=== PATIENT | male | born 1975 | race Hispanic/Latino ===

== ENCOUNTER 2020-05-08 11:34 | Emergency (ER) | payer OTHER ==
[2020-05-08] MEDS ORDERED: Metoclopramide HCl 10 MG/2 ML VIAL ONE (12:05)
[2020-05-08] MEDS ORDERED: diphenhydrAMINE 50 MG/ML VIAL ONE (12:05)
[2020-05-08] MEDS ORDERED: Acetaminophen 500 MG TAB ONE (12:05)
--- NOTE | 2020-05-08 12:39 | CT ---
CT head noncontrast HISTORY: Headache. FINDINGS: There is no evidence of acute intracranial hemorrhage or infarct. The ventricles appear nor mal in size, shape and position. There is no mass effect or shift of midline structures. Visualized paranasal sinuses remain well aerated. IMPRESSION : No abnormalities are demonstrated.
== END 2020-05-08 13:35 | disposition home or self-care (01) ==
LOC: ERS 11:34
DX: R51.9 Headache, unspecified (principal)
CPT/HCPCS: 70450; 96365; 96375; J1200; J2765

== ENCOUNTER 2022-06-26 18:30 | Emergency (ER) | payer BC, OTHER ==
[2022-06-26] MEDS ORDERED: Metoclopramide HCl 10 MG/2 ML VIAL ONE (20:36)
[2022-06-26] MEDS ORDERED: diphenhydrAMINE 50 MG/ML VIAL ONE (20:36)
[2022-06-26 20:48] LABS: #Eosinphils 0.2 thou/uL (0.0-0.7); #Monocytes 0.6 thou/uL (0.11-0.59); #Neutrophils 4.1 thou/uL (1.40-6.50); %Basophils 0.6 % (0.0-1.0); %Lymphocytes 37.8 % (21.0-51.0); %Monocytes 7.9 % (0.0-10.0); %Neutrophils 51.7 % (42.0-75.0); Hemoglobin 14.9 g/dL (14.0-18.0); Mean Corpuscular HGB CONC 32.9 g/dL (32.0-36.0); Mean Corpuscular Hemoglobin 27.6 pg (27.0-31.0); Mean Corpuscular Volume 83.8 fl (78.0-98.0); Mean Platelet Volume 8.3 fL (7.4-10.4); Platelet Count 268 10x3/uL (130-400); RBC Distribution Width 12.4 % (11.5-14.5); Red Blood Cell (RBC) Count 5.39 mill/uL (4.70-6.10)
[2022-06-26 21:11] LABS: ALT (SGPT) 39 U/L (8-55); AST (SGOT) 20 U/L (5-34); Albumin 4.7 g/dL (3.5-5.0); Alkaline Phosphatase 68 U/L (40-110); Anion Gap 11 mmol/L (10-20); BUN (Urea Nitrogen) 14 mg/dL (8.9-20.6); Bilirubin, Total 0.2 mg/dL (0.2-1.2); Calc. Creatinine Clearance 0 mL/min (70-130); Calcium 9.8 mg/dL (7.8-10.44); Carbon Dioxide 26 mmol/L (22-29); Chloride 101 mmol/L (98-107); Estimated GFR 110; Globulin 3.8 g/dL (2.4-3.5); Glucose 95 mg/dL (70-105); Potassium 4.3 mmol/L (3.5-5.1); Protein, Total 8.5 g/dL (6.0-8.3); Sodium 134 mmol/L (136-145)
== END 2022-06-26 22:10 | disposition home or self-care (01) ==
LOC: ERS 18:30
DX: R51.9 Headache, unspecified (principal); R07.89 Other chest pain
CPT/HCPCS: 36415; 70450; 80053; 84484; 85025; 93005; 96374; 96375; J1200; J2765

== ENCOUNTER 2022-10-03 13:12 | Observation (INO) | payer BC ==
[2022-10-03 14:42] LABS: #Lymphocytes 2.4 thou/uL (1.20-3.40); #Monocytes 0.7 thou/uL (0.11-0.59); %Basophils 0.4 % (0.0-1.0); %Eosinophils 0.3 % (0.0-10.0); %Lymphocytes 19.5 % (21.0-51.0); %Monocytes 5.4 % (0.0-10.0); %Neutrophils 74.5 % (42.0-75.0); Hemoglobin 14.2 g/dL (14.0-18.0); Mean Corpuscular HGB CONC 33.5 g/dL (32.0-36.0); Mean Corpuscular Hemoglobin 28.4 pg (27.0-31.0); Mean Corpuscular Volume 84.6 fl (78.0-98.0); Mean Platelet Volume 8.3 fL (7.4-10.4); Platelet Count 254 10x3/uL (130-400); RBC Distribution Width 12.3 % (11.5-14.5); Red Blood Cell (RBC) Count 4.99 mill/uL (4.70-6.10); White Blood Cell (WBC) Count 12.1 10x3/uL (4.8-10.8)
[2022-10-03 15:05] LABS: ALT (SGPT) 54 U/L (8-55); AST (SGOT) 20 U/L (5-34); Albumin 5.1 g/dL (3.5-5.0); Alkaline Phosphatase 76 U/L (40-110); Anion Gap 15 mmol/L (10-20); BUN (Urea Nitrogen) 12 mg/dL (8.9-20.6); Bilirubin, Total 0.4 mg/dL (0.2-1.2); Calc. Creatinine Clearance 0 mL/min (70-130); Calcium 10.4 mg/dL (7.8-10.44); Carbon Dioxide 25 mmol/L (22-29); Chloride 101 mmol/L (98-107); Estimated GFR 108; Globulin 3.6 g/dL (2.4-3.5); Glucose 116 mg/dL (70-105); Lipase 29 U/L (8-78); Potassium 4.2 mmol/L (3.5-5.1); Protein, Total 8.7 g/dL (6.0-8.3); Sodium 137 mmol/L (136-145)
[2022-10-03] MEDS ORDERED: Ondansetron PF 4 MG/2 ML Vial ONE ×2 (16:23→23:04)
[2022-10-03] MEDS ORDERED: Piperacillin/Tazobactam 3.375 GM VIAL ONE (16:33)
[2022-10-03] MEDS ORDERED: Morphine 4 MG/ML VIAL ONE (16:33)
[2022-10-03] MEDS ORDERED: Ondansetron PF 4 MG/2 ML Vial IVP PRN (21:00)
[2022-10-03] MEDS ORDERED: Ondansetron ODT 4 MG TAB SL PRN (21:00)
[2022-10-03] MEDS ORDERED: Acetaminophen 325 MG TAB PO PRN (21:00)
[2022-10-03] MEDS: Piperacillin/Tazobactam 3.375 GM in Sodium Chloride 0.9% 100 ML IVPB SCH (21:56)
[2022-10-03] MEDS: Sodium Chloride 0.9% 1,000 ML IV SCH (21:56)
[2022-10-03] MEDS ORDERED: Bupivacaine/Epinephrine 0.25% 30 ML VIAL ONE (22:02)
[2022-10-03] MEDS ORDERED: fentaNYL PF 100 MCG/2 ML SYRINGE ONE (22:37)
[2022-10-03] MEDS ORDERED: fentaNYL 50 mcg/mL 1 mL Vial ONE (22:37)
[2022-10-03 22:59] VITALS: BMI 30.9
[2022-10-03] MEDS ORDERED: diphenhydrAMINE 50 MG/ML VIAL ONE (23:04)
[2022-10-03] MEDS ORDERED: Lidocaine 1% PF 5 ML VIAL ONE (23:04)
[2022-10-03] MEDS ORDERED: Dexamethasone 20 MG/5 ML VIAL ONE (23:04)
[2022-10-03] MEDS ORDERED: PROPOFOL 200 MG/20 ML VIAL ONE (23:04)
[2022-10-03] MEDS ORDERED: GLYCOPYRROLATE/PF 0.2 MG/ML VIAL ONE (23:04)
[2022-10-03] MEDS ORDERED: Rocuronium Bromide 10 MG/ML (10ML VIAL) ONE (23:04)
[2022-10-03] MEDS ORDERED: NEOSTIGMINE 3 MG/3 ML SYR 3 MG/3 ML SYRINGE ONE (23:04)
[2022-10-04] MEDS ORDERED: Morphine Sulfate 2 MG/ML SYRINGE SLOW IVP PRN (00:07)
[2022-10-04] MEDS ORDERED: Ondansetron HCl/PF 4 MG/2 ML Vial IVP PRN (00:07)
[2022-10-04] MEDS ORDERED: PACU-Morphine 4MG/ML VIAL SLOW IVP PRN (00:07)
[2022-10-04] MEDS ORDERED: HYDROmorphone 2 MG/ML VIAL SLOW IVP PRN (00:07)
[2022-10-04] MEDS ORDERED: Promethazine HCl 25 MG/ML VIAL IM PRN ×2 (00:07→00:57)
[2022-10-04] MEDS ORDERED: Ipratropium/Albuterol 3 ML NEB NEB PRN (00:57)
[2022-10-04] MEDS ORDERED: Mag-Al 1200 mg/1200 mg/30 ML UDCUP PO PRN (00:57)
[2022-10-04] MEDS ORDERED: Calcium Carbonate 500 MG ChewTAB PO PRN (00:57)
[2022-10-04] MEDS ORDERED: Ondansetron PF 4 MG/2 ML Vial IVP PRN (00:57)
[2022-10-04] MEDS ORDERED: HYDROcodone/Acetaminophen 10/325 mg Tablet PO PRN (00:57)
[2022-10-04] MEDS: Sodium Chloride 0.9% 1,000 ML IV SCH (04:47)
[2022-10-04] MEDS: Piperacillin/Tazobactam 3.375 GM in Sodium Chloride 0.9% 100 ML IVPB SCH (04:51)
[2022-10-04 05:57] LABS: #Lymphocytes 0.8 thou/uL (1.20-3.40); #Monocytes 0.1 thou/uL (0.11-0.59); #Neutrophils 9.6 thou/uL (1.40-6.50); %Basophils 0.1 % (0.0-1.0); %Eosinophils 0.1 % (0.0-10.0); %Lymphocytes 7.4 % (21.0-51.0); %Monocytes 1.3 % (0.0-10.0); %Neutrophils 91.1 % (42.0-75.0); Hemoglobin 13.2 g/dL (14.0-18.0); Mean Corpuscular HGB CONC 34.2 g/dL (32.0-36.0); Mean Corpuscular Hemoglobin 28.7 pg (27.0-31.0); Mean Platelet Volume 8.3 fL (7.4-10.4); Platelet Count 233 10x3/uL (130-400); RBC Distribution Width 12.4 % (11.5-14.5); Red Blood Cell (RBC) Count 4.59 mill/uL (4.70-6.10); White Blood Cell (WBC) Count 10.5 10x3/uL (4.8-10.8)
[2022-10-04 06:18] LABS: ALT (SGPT) 97 U/L (8-55); AST (SGOT) 57 U/L (5-34); Albumin 4.3 g/dL (3.5-5.0); Alkaline Phosphatase 67 U/L (40-110); Anion Gap 15 mmol/L (10-20); BUN (Urea Nitrogen) 13 mg/dL (8.9-20.6); Bilirubin, Total 0.5 mg/dL (0.2-1.2); Calc. Creatinine Clearance 120 mL/min (70-130); Calcium 9.4 mg/dL (7.8-10.44); Carbon Dioxide 22 mmol/L (22-29); Chloride 103 mmol/L (98-107); Estimated GFR 96; Globulin 3.4 g/dL (2.4-3.5); Glucose 154 mg/dL (70-105); Magnesium 1.9 mg/dL (1.6-2.6); Phosphorus 2.8 mg/dL (2.3-4.7); Protein, Total 7.7 g/dL (6.0-8.3); Sodium 136 mmol/L (136-145)
[2022-10-04 12:10] VITALS: BP 101/62; TEMP 98.6
[2022-10-04] MEDS ORDERED: traMADol HCl 50 MG TAB PO PRN (12:36)
== END 2022-10-04 14:11 | disposition home or self-care (01) ==
LOC: ERS 13:12 → ERHOLD 18:10 → SURG B 20:35
PROVIDERS: ADMIT Family Medicine; ATTEND Family Medicine
PROC: 0FT44ZZ Resection of Gallbladder, Percutaneous Endoscopic Approach (ICD-10-PCS; principal; 2022-10-03)
DX: K80.12 Calculus of gallbladder with acute and chronic cholecystitis without obstruction (principal); K82.1 Hydrops of gallbladder; G43.909 Migraine, unspecified, not intractable, without status migrainosus; D72.829 Elevated white blood cell count, unspecified; K76.0 Fatty (change of) liver, not elsewhere classified
CPT/HCPCS: 36415; 71045; 76705; 80053; 83690; 83735; 84100; 84484; 85025; 88304; 93005; 96365; 96375; 96376; C1889; G0378; J1100; J1200; J2270; J2405; J2543; J2704; J3010; J3490; J7050

== ENCOUNTER 2024-04-11 14:19 | Emergency (ER) | payer BC | END 2024-04-11 15:10 | disposition home or self-care (01) | LOC: ERS 14:19 | DX: G51.0 Bell's palsy (principal) | CPT/HCPCS: 99283 ==